=== PATIENT | female | born 1980 | race Caucasian/White ===

== ENCOUNTER → 2024-10-21 | Outpatient (CLI) | payer MEDICAID, SELFPAY ==
--- NOTE | 2024-10-21 09:30 | XR_ITS ---
Examination: MRI cervical spine without intravenous contrast Date and time of exam: October 21, 2024 0930 hours Comparison 05/28/2013 INDICATIONS: Neck pain radiating down both arms burning sensation in the arms and hands 3 years Technique: Multiple axial and sagittal sections of the cervical spine to been obtained. T2 weighted sagittal sections, TR 3, 270, TE 117 T1-weighted sagittal sections, TR 500, TE 11 T1-weighted axial sections, TR 607, TE 12, axial sections TR 18, TE 27 and T2 weighted transverse sections, TR 3920, TE 122. Findings: Adequate alignment cervical vertebral bodies No cervical fracture T2-weighted images demonstrate mild diffuse increased signal in the cervical cord Intact odontoid No significant cervical disc narrowing C5-C6 moderate bilateral neural foraminal stenosis C6-C7 2 mm central subarticular osteophyte disc complex, moderate left neural foraminal stenosis IMPRESSION: There remains mild diffuse increased signal in the cervical cord C5-C6 moderate bilateral neural foraminal stenosis C6-C7 2 mm central subarticular osteophyte disc complex, moderate left neural foraminal stenosis
== END | disposition home or self-care (01) ==
PROVIDERS: PCP Nurse Practitioner Family; Referring Provider Nurse Practitioner Family; Visit Provider Nurse Practitioner Family
DX: M48.02 Spinal stenosis, cervical region (principal); M25.78 Osteophyte, vertebrae
CPT/HCPCS: 72141

== ENCOUNTER → 2024-12-09 | Outpatient (CLI) | payer MEDICAID, SELFPAY ==
--- NOTE | 2024-12-09 10:00 | XR_ITS ---
Examination: MRI of brain without intravenous contrast. MRI brain with intravenous contrast. Date and time of exam:December 09, 2024 1113 hours Comparison November 24, 2023 INDICATIONS: Diagnosis pituitary adenoma, post surgical resection, worsening headaches worsening hearing loss numbness in the hands and arms dizziness 15 years Technique: Multiple axial and sagittal images of the brain to been obtained. Siemens high-resolution 1.52 Viky short bore scanner utilized. Sagittal sections, T1 weighted images, TR 500, TE 14, are performed. Axial sections proton-density and T2-weighted images have been obtained. Inversion recovery axial images, TR 9260, TE 111, TR 2500. Diffusion weighted images, axial sections, TR 4800, TE 128, B value 1000. Axial sections, ADC map, TR 4800, TE 128. Axial and coronal images were also obtained post 20 cc gadolinium administered intravenously. Findings:: Enlargement of the sella turcica is not present. The optic chiasm and infundibular stalk are not remarkable. There is no localized enlargement of the medulla or barbara. Fourth ventricle and cerebellar tonsils appear normal in position. No subacute area of hemorrhage density is seen. Fourth ventricle is midline. Mass in the cerebellopontine angle region is not evident. 7th and 8th nerve complexes exhibit symmetry Globes are symmetrical Orbital musculature including medial lateral rectus muscles do not exhibit abnormality Increased white matter signal is not seen Effacement of the cortical sulcal markings is not identified. Mass effect upon the ventricular system is not identified. Diffusion-weighted images demonstrate no focus of restricted diffusion Contrast images demonstrate no abnormal cerebellar or cerebral lesions Impression: Negative for acute hemorrhage mass effect or midline shift No MR findings diagnostic for demyelinating disease No pituitary macroadenoma or microadenoma No disruption of the optic chiasm
[2024-12-09 11:09] LABS: HCG Qualitative,Urine Negative
== END | disposition home or self-care (01) ==
PROVIDERS: PCP Physician Assistant Medical; Referring Provider Internal Medicine Endocrinology, Diabetes & Metabolism; Visit Provider Internal Medicine Endocrinology, Diabetes & Metabolism
DX: D35.2 Benign neoplasm of pituitary gland (principal); Z32.00 Encounter for pregnancy test, result unknown
CPT/HCPCS: 70553; 81025; A9579

== ENCOUNTER 2025-02-14 16:25 | Emergency (ER) | payer MEDICAID, SELFPAY ==
[2025-02-14 17:02] VITALS: BP 159/91; PULSE 78; RESP 20; TEMP 36.7; O2SAT 96
--- NOTE | 2025-02-14 17:20 | XR_ITS ---
Examination: Cervical spine 3 views Technique one AP lateral coned AP odontoid cervical spine 3 views Exam date and time: February 14, 2025 1724 hrs. Indications: Neck pain 1.5 years, patient woke up with a lump in the back of the neck this morning Findings: Straightening normal cervical lordosis Mild disc narrowing C5-C6, C6-C7 No cervical fracture Impression: No cervical fracture Mild degenerative disc disease C5-C6, C6-C7 Recommend ultrasound soft tissue follow-up of the palpable neck mass
--- NOTE | 2025-02-14 17:21 | EKG_ITS ---
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
--- NOTE | 2025-02-14 17:28 | PD.EDRME ---
Rapid Medical Screening Exam RME Arrival date/time: 02/14/25 16:25 44-year-old female with no known medical history presents to the emergency room with a chief complaint of tenderness to her neck, headache and fatigue x 3 days. I have greeted and performed a focused initial assessment of this patient. A comprehensive ED assessment and evaluation of the patient, analysis of all test results, and completion of the medical decision making process will be conducted by additional ED providers. Chief Complaint: Headache Vital signs: Vital Signs Temperature 98.0 F 02/14/25 17:02 Pulse Rate 78 02/14/25 17:02 Respiratory Rate 20 02/14/25 17:02 Blood Pressure 159/91 H 02/14/25 17:02 Pulse Oximetry (%) 96 02/14/25 17:02 Oxygen Delivery Method Room Air 02/14/25 17:02 Vital signs reviewed by provider: Yes
[2025-02-14 18:09] LABS: Collection Type, Urine Clean Catch
[2025-02-14 18:11] LABS: Basophils # (Auto) 0.1 Thou/mm3 (0.0-0.2); Basophils % (Auto) 1 % (0-2.5); Eosinophils # (Auto) 0.6 Thou/mm3 (0.0-0.5); Eosinophils % (Auto) 5 % (0-10); Hemoglobin 14.2 g/dL (12.0-16.0); Immature Granulocytes % (Auto) 0 % (0-0); Immature Granulocytes Auto 0.03 Thou/mm3 (0.00-0.00); Lymphocytes # (Auto) 3.5 Thou/mm3 (1.0-4.8); Lymphocytes % (Auto) 32 % (10-50); Mean Corpuscular Volume 88 fL (80-100); Monocytes # (Auto) 0.6 Thou/mm3 (0.0-0.8); Monocytes % (Auto) 6 % (0-12); Neutrophils # (Auto) 6.2 Thou/mm3 (1.8-7.7); Neutrophils % (Auto) 56 % (37-80); Nucleated Red Blood Cell % 0 /100 WBC (0); Platelet Count 485 Thou/mm3 (140-440); RDW Standard Deviation 39.9 fL (36.4-46.3); White Blood Count 11.1 Thou/mm3 (3.6-11.0)
[2025-02-14 18:17] LABS: Bilirubin,Urine Negative (Negative); Blood,Urine 1+ (Negative); Clarity,Urine Clear (Clear/Hazy); Color,Urine Lt-Yellow (Lt Yel-Yel); Glucose, Urine Negative (Negative); Ketones,Urine Negative (Negative); Leukocyte Esterase,Urine Positive (Negative); Nitrite,Urine Negative (Negative); Protein,Urine Negative (Neg - Trace); RBC,Urine 2 /hpf (0-3); Specific Gravity,Urine 1.012 (1.001-1.035); Squamous Epithelial Cell,Urine 1 /hpf (0-5); Urobilinogen,Urine Negative mg/dL (0.0-1.0); WBC,Urine 4 /hpf (0-5)
[2025-02-14 18:26] LABS: INR 1.1 (0.9-1.3); Partial Thromboplastin Time 27.7 Seconds (22.0-36.0); Prothrombin Time 11.5 Seconds (9.0-12.2)
[2025-02-14 18:27] LABS: Amphetamine/Methamp Scrn,U Negative (Negative); Barbiturate Screen,Urine Negative (Negative); Benzodiazepines Screen,Urine Negative (Negative); Benzoylecgonine Screen, Ur Negative (Negative); Fentanyl Screen,Urine Negative (Negative); Opiate Screen,Urine Positive (Negative); THC Screen,Urine Positive (Negative)
[2025-02-14 18:30] LABS: Alanine Aminotransferase 20 U/L (10-49); Albumin, Serum 4.9 gm/dL (3.5-5.0); Albumin/Globulin Ratio 1.6 (1.2-2.2); Alkaline Phosphatase 45 U/L (46-116); Anion Gap 8 (7-16); Aspartate Amino Transferase 19 U/L (0-34); BUN/Creatinine Ratio 16 Ratio (12-20); Bilirubin,Total 0.5 mg/dL (0.3-1.2); Blood Urea Nitrogen 13 mg/dL (9-23); Calcium 9.7 mg/dL (8.3-10.6); Calcium (Corrected) 9.7 mg/dL (8.5-10.1); Carbon Dioxide 27.8 mMol/L (20.0-31.0); Chloride 103 mMol/L (98-107); Creatinine (Component) 0.8 mg/dL (0.6-1.3); Glucose 89 mg/dL (74-106); LDH (Lactate Dehydrogenase) 201 U/L (120-246); Osmolality,Calculated 276 (275-295); Potassium 3.7 mMol/L (3.4-5.1); Sodium 139 mMol/L (136-145); Total Protein 7.9 gm/dL (5.7-8.2); Troponin I < 0.002 ng/mL (0.0-0.045); eGFR > 60 See Note
[2025-02-14 18:32] LABS: B-Type Natriuretic Peptide < 20 pg/mL (0-100)
[2025-02-14] MEDS: DiphenhydrAMINE 25 MG CAPSULE PO (18:47)
[2025-02-14] MEDS: KETOROLAC INJ 60 MG/2 ML VIAL 30 MG IM (18:48)
[2025-02-14] MEDS: SUMAtriptan INJ 6 MG/0.5 ML VIAL SC (18:49)
[2025-02-14 20:12] VITALS: BP 149/101; PULSE 76; RESP 18; TEMP 36.8; O2SAT 96
--- NOTE | 2025-02-14 20:20 | EDNOTE_ITS ---
ED General RME/HPI General Chief complaint: Headache Stated complaint: INCREASED WATER RETENTION ON LASIX, MCGINNIS Time Seen by Provider: 02/14/25 20:12 Arrival date/time: 02/14/25 16:25 CC: Neck pain headache HPI ongoing for the past 3 days with however the patient admits that she has been having chronic neck pain for a long time . Patient denies fever chills neck stiffness shortness of breath difficulty breathing nausea or vomiting. At the time of the exam at 2019, the patient stated her headache is resolved, the neck pain arises from a bump , that she feels for the first time in the back of her neck. Patient denies fall blunt trauma or repetitive motion. Patient also noted to be hypertensive. Patient states she has hypertension and takes medications however did not take any tonight. RME / HPI RME / HPI narrative: 02/14/25 16:25 44-year-old female with no known medical history presents to the emergency room with a chief complaint of tenderness to her neck, headache and fatigue x 3 days. I have greeted and performed a focused initial assessment of this patient. A comprehensive ED assessment and evaluation of the patient, analysis of all test results, and completion of the medical decision making process will be conducted by additional ED providers. Related Data Home Medications ?Medication ?Instructions ?Recorded ?Confirmed No Known Home Medications 05/01/1904/04 Previous Rx's ?Medication ?Instructions ?Recorded clindamycin HCl 300 mg capsule 300 mg PO QID #40 caps 05/01/19 meloxicam 7.5 mg tablet 7.5 mg PO QDAY #10 tabs 02/01 02/25 Allergies Allergy/AdvReac Type Severity Reaction Status Date / Time No Known Allergies Allergy Verified 05/01/19 14:01 Review of Systems Review of Systems Narrative Review of Systems: GEN: No fever, no chills, no weight loss EYES: No discharge, no visual changes, no pain HEENT: No ear pain, no congestion, no sore throat PULM: No shortness of breath, no cough, no congestion CV: No chest pain, no dyspnea on exertion, no palpitations GI: No nausea, no vomiting, no diarrhea, no pain, no constipation : No frequency, no urgency, no dysuria MUSC/SKEL: No joint pain, no back pain, + neck pain SKIN: No rash PSYCH: No hallucinations, no depression HEME/LYMPH: No easy bleeding or bruising tendencies NEURO: No weakness, no headache Past Medical History Past Medical History CARDIAC: Negative Congestive Heart Failure RESPIRATORY: Negative Chronic Obstructive Pulmonary Disease (COPD) GENITOURINARY: Negative Renal Disease ENDOCRINE: Negative Diabetes Mellitus Type 1 or Diabetes Mellitus Type 2 Social History SMOKING STATUS: Never smoker ED Exam Narrative Physical exam: [General: Obese discomfort but not in any acute distress Head normocephalic HEENT: Within acceptable limits Neck is supple mild tenderness to the right cervical paraspinal tenderness at the C 456 region. It is subtle, poorly defined and reducible with pressure. Patient states identifies this is the area as the bump . No left-sided paraspinal tenderness. Chest equal chest rise nontender to palpation Respiratory: Clear to auscultation no wheezes crackles or rubs CV: Rate rhythm is regular no murmurs rubs or clicks Abdomen is distended secondary to body habitus soft nontender no masses positive bowel sounds all 4 quadrants Back: No CVA tenderness no spinous process tenderness from cervical spine thoracic and lumbar spine Skin: Intact no petechiae rash induration ulceration or crepitus Extremities: Moving all extremity against resistance cap refill less than 2 seconds neurosensory intact Neuro: Awake alert oriented x3 Glascow coma 15 no focal deficits] Course Quality Measures none Orders Category Date Time Status EKG (ED ONLY) *Do not use* NOW Care 02/14/25 17:21 Completed EKG (ED Only) Stat Exams 02/14/25 17:21 Draft XR cervical spine 2-3V Stat Exams 02/14/25 17:20 Completed B-Type Natriuretic Peptide Stat Lab 02/14/25 17:50 Completed CBC Stat Lab 02/14/25 17:50 Completed Comprehensive Metabolic Panel Stat Lab 02/14/25 17:50 Completed Drug Screen,Urine Stat Lab 02/14/25 17:52 Completed LDH (Lactate Dehydrogenase) Stat Lab 02/14/25 17:50 Completed Magnesium Stat Lab 02/14/25 17:50 Completed Partial Thromboplastin Time Stat Lab 02/14/25 17:50 Completed Prothrombin Time with INR Stat Lab 02/14/25 17:50 Completed Troponin I Stat Lab 02/14/25 17:50 Completed Urinalysis Stat Lab 02/14/25 17:52 Completed DiphenhydrAMINE [Benadryl] Med 02/14/25 17:28 Discontinued 25 mg PO X1 ONE Ketorolac Inj [Toradol Inj] Med 02/14/25 17:28 Discontinued 30 mg IM X1 ONE SUMAtriptan INJ [Imitrex Inj] Med 02/14/25 17:28 Discontinued 6 mg SC X1 ONE Vital Signs Vital signs: Vital Signs Temperature 98.0 F 02/14/25 17:02 Pulse Rate 78 02/14/25 17:02 Respiratory Rate 20 02/14/25 17:02 Blood Pressure 159/91 H 02/14/25 17:02 Pulse Oximetry (%) 96 02/14/25 17:02 Oxygen Delivery Method Room Air 02/14/25 17:02 [facility] Patient data External records reviewed:: [facility] previous records Clinical information provided by:: patient Social determinants that could affect healthcare access:: none Patient has the following chronic illnesses:: Hypertension chronic neck pain How is presenting disease/condition affected by chronic disease/condition?: e xacerbated by Evaluation data The following diagnostics were reviewed and interpreted by me:: lab results and radiology exam(s) Lab and/or radiology exams considered but not ordered:: CBC shows a mild leukocytosis of 11.1 no anemia thrombocytopenia Coags within acceptable limits CMP shows no acute electrolyte imbalances renal impairment transaminitis or T. bili elevation Troponin is negative BNP is negative Urine is negative for UTI UDS is positive for opiates and THC EKG performed at 1724 shows a ventricular rate of 78 VT interval 154 QRS of 9 0 QTc of 408 this is normal sinus rhythm. X-ray of the cervical spine shows mild disc degeneration as interpreted by me read by radiology. Interpretation Summary: This is acute on chronic neck pain. Patient advised to follow-up with a primary care provider consider follow-up with outpatient telesales specialist. If there is a worsening of symptoms patient advised to return the emergency room for reevaluation. Medications Medications considered but not ordered:: None Medication administrations:: Medication Administration History Discontinued Medications Diphenhydramine HCl (Diphenhydramine 25 Mg Capsule) 25 mg PO X1 ONE Stop: 02/14/25 17:29 Last Admin: 02/14/25 18:47 Dose: 25 mg Documented By: ROSANNA Ketorolac Tromethamine (Ketorolac Inj 60 Mg/2 Ml Vial) 30 mg IM X1 ONE Stop: 02/14/25 17:29 Last Admin: 02/14/25 18:48 Dose: 30 mg Documented By: ROSANNA Sumatriptan Succinate (Sumatriptan Inj 6 Mg/0.5 Ml Vial) 6 mg SC X1 ONE Stop: 02/14/25 17:29 Last Admin: 02/14/25 18:49 Dose: 6 mg Documented By: ROSANNA None Consultations Consultation(s) initiated? (list below): No Diagnosis Differential Diagnosis ED Complaint MDM: Complex migraine headache neck pain Most likely diagnosis given after review of the tests above:: Acute on chronic neck pain Admission Indicated Admission indicated?: not indicated Explain why admission is indicated or not indicated:: Stable for discharge Admission Request Was there a request for admission?: No Disposition Plan Disposition Plan: Discharge Discharge Attestation Discharge Attestation: The patient and all family members were given an opportunity to ask questions and understood the discharge instructions. Discharge instructions specifically effects, indications for sooner follow up or return to the emergency department, and the expected course of current diagnosis. Patient condition: Stable Medical Decision Making Differential Diagnosis Differential Diagnosis: Complex migraine headache neck pain Lab Data 02/14/25 17:50 02/14/25 17:50 Labs: Lab Results 02/14/25 02/14/25 Range/Units 17:50 17:52 WBC 11.1 H (3.6-11.0) Thou/mm3 RBC 4.90 (4.00-5.20) Miln/mm3 Hgb 14.2 (12.0-16.0) g/dL Hct 43.0 (36.0-46.0) % MCV 88 (80-100) fL MCH 29.0 (25.0-35.0) pg MCHC 33.0 (31.0-37.0) g/dl RDW Std Deviation 39.9 (36.4-46.3) fL Plt Count 485 H (140-440) Thou/mm3 Neut % (Auto) 56 (37-80) % Lymph % (Auto) 32 (10-50) % [place] % (Auto) 6 (0-12) % Eos % (Auto) 5 (0-10) % Baso % (Auto) 1 (0-2.5) % Neut # (Auto) 6.2 (1.8-7.7) Thou/mm3 Lymph # (Auto) 3.5 (1.0-4.8) Thou/mm3 [place] # (Auto) 0.6 (0.0-0.8) Thou/mm3 Eos # (Auto) 0.6 H (0.0-0.5) Thou/mm3 Baso # (Auto) 0.1 (0.0-0.2) Thou/mm3 Immature Gran # (Auto) 0.03 H (0.00-0.00) Thou/mm3 Absolute Nucleated RBC 0.00 (0.00-0.00) Thou/mm3 Immature Gran % 0 (0-0) % Nucleated RBC % 0 (0) /100 WBC PT 11.5 (9.0-12.2) Seconds INR 1.1 (0.9-1.3) APTT 27.7 (22.0-36.0) Seconds Sodium 139 (136-145) mMol/L Potassium 3.7 (3.4-5.1) mMol/L Chloride 103 (98-107) mMol/L Carbon Dioxide 27.8 (20.0-31.0) mMol/L Anion Gap 8 (7-16) BUN 13 (9-23) mg/dL Creatinine 0.8 (0.6-1.3) mg/dL Estim Creat Clear Calc Not Performed. eGFR > 60 (60 - ) See Note BUN/Creatinine Ratio 16 (12-20) Ratio Glucose 89 (74-106) mg/dL Calculated Osmolality 276 (275-295) Calcium 9.7 (8.3-10.6) mg/dL Corrected Calcium 9.7 (8.5-10.1) mg/dL Magnesium 2.0 (1.6-2.6) mg/dL Total Bilirubin 0.5 (0.3-1.2) mg/dL AST 19 (0-34) U/L ALT 20 (10-49) U/L Alkaline Phosphatase 45 L (46-116) U/L Lactate Dehydrogenase 201 (120-246) U/L Troponin I < 0.002 (0.0-0.045) ng/mL B-Natriuretic Peptide < 20 (0-100) pg/mL Total Protein 7.9 (5.7-8.2) gm/dL Albumin 4.9 (3.5-5.0) gm/dL Globulin 3.0 (2.3-3.5) gm/dL Albumin/Globulin Ratio 1.6 (1.2-2.2) Ur Collection Type Clean Catch Urine Color Lt-Yellow (Lt Yel-Yel) Urine Clarity Clear (Clear/Hazy) Urine pH 7.0 (5.0-7.0) Ur Specific [place] 1.012 (1.001-1.035) Urine Protein Negative (Neg - Trace) Urine Glucose (UA) Negative (Negative) Urine Ketones Negative (Negative) Urine Blood 1+ A (Negative) Urine Nitrite Negative (Negative) Urine Bilirubin Negative (Negative) Urine Urobilinogen (Auto) Negative (0.0-1.0) mg/dL Ur Leukocyte Esterase Positive (Negative) Urine RBC 2 (0-3) /hpf Urine WBC 4 (0-5) /hpf Ur Squamous Epith Cells 1 (0-5) /hpf Urine Bacteria None (None) Urine Opiates Screen Positive A (Negative) Urine Fentanyl Screen Negative (Negative) Ur Barbiturates Screen Negative (Negative) U Amphetamin/Meth Scrn Negative (Negative) U Benzodiazepines Scrn Negative (Negative) U Cocaine Metab Screen Negative (Negative) U Marijuana (THC) Screen Positive A (Negative) Discharge Plan Plan Patient Disposition: HOME (Self Care) Patient condition on transfer: Stable Prescriptions/Referrals Prescriptions/Med Rec: New meloxicam 7.5 mg tablet 7.5 mg PO QDAY Qty: 10 0RF No Action No Known Home Medications clindamycin HCl 300 mg capsule 300 mg PO QID Qty: 40 0RF Referrals: Hayley Landry PA-C [Primary Care Provider] - In 1 week Problem List Clinical Impression: Headache, Neck pain Patient/Caregiver Discharge Instructions Education Materials: Self-Care for Headaches, ED Hypertension, Established, ED Neck Pain, ED Neck Pain No Trauma Print Language: Mohawk Stand Alone Forms: Xnea Award Info., Work/School Release, Patient Portal Info Letter PA/VEENA Supervising Physician PA/COTTON BUYER Supervising Physician: Mane Donis ENP
[2025-02-14 20:28] VITALS: BP 156/103; PULSE 80
[2025-02-14] MEDS: METOPROLOL TARTRATE 25 MG TABLET 50 MG PO (20:28)
== END 2025-02-14 20:54 | disposition home or self-care (01) ==
PROVIDERS: Nurse Practitioner Family; Emergency Provider Emergency Medicine; PCP Physician Assistant Medical
DX: R51.9 Headache, unspecified (principal); M54.2 Cervicalgia; I10 Essential (primary) hypertension
CPT/HCPCS: 36415; 72040; 80053; 80307; 81001; 83615; 83735; 83880; 84484; 85025; 85610; 85730; 96372; 99283; J1885; J3030; A9270

== ENCOUNTER → 2025-06-16 | Outpatient (CLI) | payer MEDICAID, SELFPAY ==
--- NOTE | 2025-06-16 | XR_ITS ---
Examination: Transvaginal ultrasound of the pelvis, complete Technique: Transvaginal sonographic images pelvis performed using hankins scale imaging Exam date and time: June 16, 2025 1400 hours INDICATIONS: Severe pelvic pain beginning 3 weeks ago FINDINGS: Uterus 7.9 cm endometrial stripe 1.5 cm Right ovary 4.1 cm arterial flow mass in the right ovary 2.3 x 2.0 x 2.3 cm, complex partially cystic partially solid Left ovary 4.2 cm arterial flow Cyst with internal echoes 20 mm, simple cyst 26 mm IMPRESSION: Bilateral cystic masses as above Recommend repeat 3 month follow-up transvaginal pelvic sonography to document stability of complex partially cystic partially solid mass right ovary 2.3 x 2.0 x 2.3 cm
--- NOTE | 2025-06-16 13:00 | XR_ITS ---
Examination: Pelvic ultrasound, transabdominal, complete Technique: Transabdominal ultrasound of the pelvis performed using grayscale imaging Date and time of exam: June 16, 2025 1348 hours INDICATIONS: Severe left pelvic pain beginning 3 weeks ago, ovarian cystic history FINDINGS: Uterus 7.8 cm endometrial stripe 2.0 cm No uterine mass or intrauterine gestation Right ovary 3.8 cm arterial flow Left ovary 3.8 cm 28 x 21 x 25 mm cyst IMPRESSION: Left ovarian simple cyst 28 x 21 x 25 mm Please see the transvaginal pelvic sonogram report
== END | disposition home or self-care (01) ==
LOC: CDIM 13:14
PROVIDERS: PCP Physician Assistant Medical; Referring Provider Physician Assistant Medical; Visit Provider Physician Assistant Medical
DX: N83.292 Other ovarian cyst, left side (principal); N83.202 Unspecified ovarian cyst, left side
CPT/HCPCS: 76830; 76856

== ENCOUNTER → 2025-10-18 | Outpatient (CLI) | payer MEDICAID, SELFPAY ==
--- NOTE | 2025-10-18 14:00 | XR_ITS ---
EXAMINATION: Renal sonography Renal Doppler arterial sonographic evaluation of the kidneys including assessment peak systolic velocities, resistive indices, renal aorta ratios Date and time: October 18, 2025, 1425 hours INDICATIONS: Diagnosis uncontrolled hypertension several years TECHNIQUE AND FINDINGS: Grayscale sonographic images kidneys Ultrasonographic assessment peak systolic velocities, calculation of resistive indices renal aorta ratios acceleration times Right kidney 11 cm renal cortex 1.3 cm Left kidney 11.3 cm cortex 2.4 cm Moderate renal scar formation No elevation of peak systolic velocities involving either kidney Normal bilateral resistive indices Normal bilateral renal aorta ratios IMPRESSION: Moderate renal scar formation bilaterally No sonographic findings of renal artery stenosis
--- NOTE | 2025-10-18 14:38 | XR_ITS ---
Examination: Screening digital mammography, bilateral Computer aided detection 3-D breast Tomosynthesis, bilateral Date and time of exam: October 18, 2025, 1514 hours, compared to mammogram January 05, 2021 60 Indication: Screening Technique: Nonmagnified MLO, CC views of the breasts to been obtained, reconstructed from 3-D Tomosynthesis images. R2 computer aided detection program utilized for evaluation of suspicious masses and/or abnormal calcifications. 3-D Tomosynthesis images obtained. Findings: The breasts are heterogeneously dense, which may obscure small masses 3 mm nodule upper outer right breast posterior depth 8 mm nodule slightly outer right breast upper right breast Benign calcifications Impression: BI-RADS Category 0: Incomplete: Need additional imaging evaluation Recommend follow-up spot tomographic views of 3 mm nodule upper outer right breast an 8 mm nodule slightly outer upper right breast as well as bilateral breast sonography to complete
== END | disposition home or self-care (01) ==
LOC: CDIM 14:30
PROVIDERS: PCP Physician Assistant Medical; Referring Provider Physician Assistant Medical; Visit Provider Physician Assistant Medical
DX: Z12.31 Encounter for screening mammogram for malignant neoplasm of breast (principal); R92.8 Other abnormal and inconclusive findings on diagnostic imaging of breast; N63.11 Unspecified lump in the right breast, upper outer quadrant; N28.89 Other specified disorders of kidney and ureter
CPT/HCPCS: 77063; 77067; 93975